=== PATIENT | male | born 1970 | race Caucasian/White ===

== ENCOUNTER 2022-06-18 23:07 | Emergency (ER) | payer BC ==
[~2022-06-18] VITALS: Ht 172.7 cm; Wt 73.2 kg
[2022-06-18 23:12] VITALS: TEMP 98
[2022-06-18 23:55] LABS: BASO # 0.1 K/mm3 (0.0-0.2); BASO % 0.6 % (0.0-2.0); EOS % 0.1 % (0.0-4.0); GRAN # 8.2 K/mm3 (1.4-6.5); GRAN % 79.5 % (42.2-75.2); HEMATOCRIT 47.8 % (42.0-52.0); HEMOGLOBIN 16.1 g/dl (13.5-18.0); LYMPH # 1.3 K/mm3 (1.2-3.4); LYMPH % 12.7 % (20.0-51.0); MEAN CELL VOLUME 90 fl (80.0-100.0); MEAN CORPUSCULAR HEMOGLOBIN 30 pg (27-31); MEAN CORPUSCULAR HGB CONC 34 g/dl (33.0-37.0); MONO # 0.7 K/mm3 (0.1-0.6); MONO % 6.9 % (1.7-9.3); PLATELET COUNT 406 K/mm3 (130-400); RED BLOOD COUNT 5.29 M/mm3 (4.20-5.60); REDCELL DISTRIBUTION WIDTH-CV 11.9 % (11.5-14.5)
[2022-06-19 00:15] LABS: ALBUMIN 4.3 gm/dL (3.5-5.0); BILIRUBIN,TOTAL 0.4 mg/dL (0.2-1.2); C-REACTIVE PROTEIN 1.76 mg/dL (0.00-0.50); CALCIUM 10.6 mg/dL (8.4-10.2); CREATININE, serum 1.35 mg/dL (0.72-1.25); POTASSIUM 3.8 mmol/L (3.5-4.5); TOTAL PROTEIN 8.1 gm/dL (6.2-8.1)
[2022-06-19] MEDS ORDERED: PHENERGAN 25 TA25 MG PO (01:03)
[2022-06-19 01:05] LABS: COLLECTION METHOD CLEAN CATCH
[2022-06-19 01:14] LABS: MUCOUS Present (NOT PRESENT); SQUAMOUS EPITHELIAL None Seen /hpf (0-10); URINE APPEARANCE Clear (CLEAR/HAZY); URINE BACTERIA Rare /hpf (NONE SEEN); URINE BLOOD TRACE-INTACT (NEGATIVE); URINE COLOR Yellow (YELLOW); URINE GLUCOSE Negative (NEGATIVE); URINE KETONE Negative (NEGATIVE); URINE NITRATE Negative (NEGATIVE); URINE PROTEIN(semi-quant) Negative (NEGATIVE); URINE RBC 0-2 /hpf (0-2); URINE UROBILINOGEN 0.2 E.U/dL (0.2-1.0)
[2022-06-19 01:22] LABS: TRICYCLIC ANTIDEPRESS URINE NEGATIVE
[2022-06-19] MEDS ORDERED: PROTONIX 40MG T40 MG PO (01:31)
[2022-06-19 01:56] VITALS: BP 148/70; PULSE 76
== END 2022-06-19 01:56 | disposition home or self-care (01) ==
LOC: COL.ER 23:07
PROVIDERS: Emergency Medicine
DX: K29.70 Gastritis, unspecified, without bleeding (principal); E86.0 Dehydration; D75.839 Thrombocytosis, unspecified; R79.89 Other specified abnormal findings of blood chemistry; Z28.310 Unvaccinated for COVID-19
CPT/HCPCS: C9113; J1200; J2405; J2550; J7030